=== PATIENT | male | born 1950 | race Asian ===

== ENCOUNTER 2017-11-04 20:58 | Emergency (ER) | END 2017-11-05 03:43 | disposition home or self-care (01) ==

== ENCOUNTER 2019-01-03 17:30 | Emergency (ER) | payer OTHER, MEDICAID ==
[~2019-01-03] VITALS: Ht 162.6 cm; Wt 78.3 kg
[~2019-01-03 17:30] MED LIST: CEPH-443 PO; CETI10CA PO; HYDR-4011 PO; METH750T93 PO; NAPR-688 PO; PRED20TA PO; TRIA15CR55 TOP
[2019-01-03 17:43] VITALS: BP 135/85; PULSE 72; RESP 16; Ht 162.6 cm; Wt 78.3 kg
== END 2019-01-03 18:38 | disposition home or self-care (01) ==
LOC: E/R 17:30
DX: L30.9 Dermatitis, unspecified (principal)
CPT/HCPCS: 99283

== ENCOUNTER 2019-01-22 10:10 | Emergency (ER) | payer OTHER, MEDICAID ==
[~2019-01-22] VITALS: Ht 167.6 cm; Wt 77.4 kg
[~2019-01-22 10:10] MED LIST changes: +BEN25 PO; +HDRP454O TOP
[2019-01-22 10:14] VITALS: BP 125/86; PULSE 105; RESP 20; Ht 167.6 cm; Wt 77.4 kg
== END 2019-01-22 11:14 | disposition home or self-care (01) ==
LOC: FTE 10:10
DX: R21 Rash and other nonspecific skin eruption (principal)
CPT/HCPCS: 99282